=== PATIENT | female | born 2000 | race Caucasian/White ===

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

== ENCOUNTER 2023-11-05 05:36 | Emergency (ER) | payer MEDICAID ==
[2023-11-05] MEDS: Activated Charcoal/Water Susp 50 GM/240 ML Tube PO ONE (05:59)
[2023-11-05 06:14] LABS: BASOPHILS PERCENT AUTO 0.5 % (0.0-1.0); EOSINOPHILS ABSOLUTE AUTO 0.1 K/mm3 (0.0-0.4); EOSINOPHILS PERCENT AUTO 1.8 % (0.0-6.0); HEMATOCRIT 38.6 % (37.0-47.0); HEMOGLOBIN 13.6 gm/dl (12.0-16.0); IMMATURE GRAN ABSOLUTE AUTO 0.02 K/mm3 (0.00-0.05); IMMATURE GRAN PERCENT AUTO 0.4 % (0.0-0.4); LYMPHOCYTES ABSOLUTE AUTO 1.8 K/mm3 (1.0-4.8); LYMPHOCYTES PERCENT AUTO 32.3 % (24.0-44.0); MEAN CORPUSCULAR HEMOGLOBIN 31.4 pg (28.0-32.0); MEAN CORPUSCULAR HGB CONC 35.2 g/dl (32.0-36.0); MEAN CORPUSCULAR VOLUME 89.1 fl (83.0-99.0); MONOCYTES ABSOLUTE AUTO 0.5 K/mm3 (0.0-0.8); MONOCYTES PERCENT AUTO 8.8 % (0.0-8.0); NEUTROPHILS ABSOLUTE AUTO 3.2 K/mm3 (1.8-7.7); NEUTROPHILS PERCENT AUTO 56.2 % (41.0-71.0); PLATELET COUNT,PLT 197 K/mm3 (150-400); RED BLOOD CELL COUNT 4.33 M/mm3 (4.10-5.30)
[2023-11-05] MEDS: Sodium Chloride 0.9% 1,000 ML IV ONE (06:15)
[2023-11-05] MEDS: Sodium Chloride 0.9% 10 ML Syringe FLUSH PRN (06:21)
[2023-11-05 06:39] LABS: A/G RATIO 1.3 (1-2); ANION GAP 15.1 (5-15); BUN/CREATININE RATIO 16.7 (14-18); CALCIUM 8.8 mg/dL (8.5-10.1); CREATININE 0.6 mg/dL (0.55-1.02); EST CRCL DRUG DOSING (CG) 153.7 mL/min; POTASSIUM,K 4.1 mEq/L (3.5-5.1); PROTEIN TOTAL,TP 7.1 g/dl (6.4-8.2)
[2023-11-05 09:45] VITALS: BP 116/66; PULSE 105
== END 2023-11-05 09:38 | disposition home or self-care (01) ==
LOC: JD.ED 05:36
DX: T39.1X1A Poisoning by 4-Aminophenol derivatives, accidental (unintentional), initial encounter (principal); E66.9 Obesity, unspecified; Z88.8 Allergy status to other drugs, medicaments and biological substances; Z68.25 Body mass index [BMI] 25.0-25.9, adult
CPT/HCPCS: 36415; 80053; 80143; 80179; 80307; 85025; 99284; A9270; J3490; J7030; 99282

== ENCOUNTER 2025-07-02 20:14 | Emergency (ER) | payer MEDICAID ==
[2025-07-02 20:57] LABS: APPEARANCE,URINE CLEAR (Clear); GLUCOSE,URINE NEGATIVE (Negative); OCCULT BLOOD,URINE NEGATIVE (Negative)
[2025-07-02 21:03] LABS: BASOPHILS ABSOLUTE AUTO 0.0 K/mm3 (0.0-0.2); BASOPHILS PERCENT AUTO 0.5 % (0.0-1.0); EOSINOPHILS ABSOLUTE AUTO 0.1 K/mm3 (0.0-0.4); EOSINOPHILS PERCENT AUTO 1.3 % (0.0-6.0); IMMATURE GRAN ABSOLUTE AUTO 0.03 K/mm3 (0.00-0.05); IMMATURE GRAN PERCENT AUTO 0.4 % (0.0-0.4); LYMPHOCYTES ABSOLUTE AUTO 2.0 K/mm3 (1.0-4.8); LYMPHOCYTES PERCENT AUTO 25.1 % (24.0-44.0); MEAN PLATELET VOLUME 10.1 fl (9.4-12.3); MONOCYTES ABSOLUTE AUTO 0.6 K/mm3 (0.0-0.8); MONOCYTES PERCENT AUTO 7.7 % (0.0-8.0); NEUTROPHILS ABSOLUTE AUTO 5.1 K/mm3 (1.8-7.7); NEUTROPHILS PERCENT AUTO 65.0 % (41.0-71.0); NRBC ABSOLUTE 0.00 (0.00-0.02); NRBC PERCENT 0.0 % (0.0-0.2); PLATELET COUNT,PLT 228 K/mm3 (150-400); RED BLOOD CELL COUNT 3.90 M/mm3 (4.10-5.30); WHITE BLOOD CELL COUNT,WBC 7.84 K/mm3 (3.9-11.3)
[2025-07-02 21:13] LABS: BUPRENORPHINE SCREEN,URINE NEGATIVE (CUTOFF=10); METHADONE SCREEN, URINE NEGATIVE (CUTOFF=200); METHAMPHETAMINES SCREEN, URINE NEGATIVE (CUTOFF=500); OXYCODONE SCREEN,URINE NEGATIVE (CUT0FF=100); THC SCREEN,URINE 20 NG/ML PRESUMPTIVE POSITIVE (CUTOFF=50)
[2025-07-02 21:20] LABS: AMPHETAMINES SCREEN, URINE NEGATIVE (CUTOFF=500)
[2025-07-02 21:57] LABS: A/G RATIO 1.1 (1-2); ALANINE AMINOTRANSFERASE,ALT 21 U/L (14-59); ASPARTATE AMNIOTRANSFERASE,AST 12 U/L (15-37); BILIRUBIN TOTAL 0.6 mg/dL (0.2-1.0); BLOOD UREA NITROGEN,BUN 8 mg/dL (7-18); CARBON DIOXIDE,CO2 27 mEq/L (21-32); CHLORIDE,CL 108 mEq/L (98-107); CREATININE 0.7 mg/dL (0.55-1.02); EST CRCL DRUG DOSING (CG) 126.09 mL/min; ESTIMATED GFR 125 mL/min (>60); GLUCOSE RANDOM 94 mg/dL (70-99); POTASSIUM,K 3.7 mEq/L (3.5-5.1); PROTEIN TOTAL,TP 6.0 g/dl (6.4-8.2); SODIUM,NA 142 mEq/L (136-145)
[2025-07-02 22:17] LABS: HCG QUANTITATIVE < 1.0 mIU/mL
[2025-07-03 00:27] VITALS: BP 120/71; PULSE 88
== END 2025-07-02 23:30 | disposition home or self-care (01) ==
LOC: JD.ED 20:14
DX: B34.9 Viral infection, unspecified (principal); F17.290 Nicotine dependence, other tobacco product, uncomplicated; E66.9 Obesity, unspecified; J45.909 Unspecified asthma, uncomplicated; Z88.8 Allergy status to other drugs, medicaments and biological substances; Z68.31 Body mass index [BMI] 31.0-31.9, adult
CPT/HCPCS: 36415; 71045; 71045-26; 80053; 80306; 81003; 84702; 85025; 86900; 86901; 99283